=== PATIENT | male | born 1990 | race Caucasian/White ===

== ENCOUNTER 2024-06-28 14:46 | Emergency (ER) | payer BC, SELFPAY ==
[2024-06-28 14:50] VITALS: BP 196/110
[2024-06-28 15:25] LABS: % Basophils 0.2 % (0-2); % Eosinophils 0.4 % (0-6); % Immature Granulocytes 0.5 % (0-0.5); % Lymphocytes 14.5 % (20.5-51.1); % Neutrophils 77.4 % (42.2-75.2); Absolute Lymphocytes 1.2 10^3/uL (1.2-3.4); Absolute Monocytes 0.6 10^3/uL (0.1-0.6); Absolute Neutrophils 6.4 10^3/uL (1.4-6.5); Hematocrit 40.3 % (39.0-52.0); Hemoglobin 13.9 g/dL (13.0-18.0); Mean Corp Hgb Conc. 34.5 g/dL (33.0-37.0); Mean Corpuscular Hgb 31.7 pg (27.0-31.0); Mean Platelet Volume 8.8 fL (7.4-10.4); Nucleated Red Blood Cells % 0 % (-); Platelet Count 253 10^3/uL (130-400); Red Blood Cell Count 4.38 10^6/uL (4.70-6.10); Red Cell Dist. Width 12.4 % (11.5-14.5); White Blood Cell Count 8.3 10^3/uL (4.8-10.8)
[2024-06-28 15:40] LABS: ALT (SGPT) 24 U/L (0-50); AST (SGOT) 31 U/L (17-59); Albumin 5.1 g/dl (3.5-5.0); Alkaline Phosphatase 55 U/L (38-126); Blood Urea Nitrogen 21 mg/dl (9-20); Calcium 10.2 mg/dl (8.4-10.2); Carbon Dioxide 29 mmol/L (22-30); Chloride 99 mmol/L (98-107); Glucose 111 mg/dl (70-99); Potassium 4.3 mmol/L (3.5-5.1); Sodium 140 mmol/L (135-145); Total Bilirubin 0.9 mg/dl (0.2-1.3); Total Protein 7.7 g/dl (6.3-8.2); eGFR > 60.00
[2024-06-28 15:52] LABS: Troponin I < 0.012 ng/ml
[2024-06-28 16:48] VITALS: BP 178/110
[2024-06-28 16:49] VITALS: BMI 27.7
--- NOTE | 2024-06-28 17:03 | ED.GENMED ---
History of Present Illness
<Sera Fernandes PA-C - Last Filed: 06/28/24 18:58>
General
Chief Complaint: Chest Pain
Source: patient
Exam Limitations: none
Time Seen by Provider: 06/28/24 16:26
Nursing documentation reviewed up to this point in time: agreed with
History of Present Illness
History of Present Illness:
33-year-old male presenting to the emergency department following episode of chest pain. Patient reports left-sided chest discomfort while he was walking around his apartment initially starting at 1:30 PM. He describes it as a dull pressure in his
left chest without radiation. There was no exertional, pleuritic, or positional component to pain. Symptoms seem to persist for about 30 minutes prompting his visit to the emergency department. Symptoms resolved shortly after arriving to the
emergency department, while he was in the waiting room. At this time patient is asymptomatic
Patient denies any associated shortness of breath, dizziness/lightheadedness, numbness/tingling, back pain, etc.
Patient does have past history of smoking. No recent surgeries. No recent travel. No history of blood clots or family clotting disorders
Patient did have a history of hypertension which resolved once he stopped smoking and drinking. Although�he does state that he has been drinking alcohol again recently.
Review of Systems
<Sera Fernandes PA-C - Last Filed: 06/28/24 18:58>
Review of Systems
Allergies reviewed?: Yes
All Other Systems: ROS reviewed and negative except as documented in HPI and ROS
Phy Exam
<Sera Fernandes PA-C - Last Filed: 06/28/24 18:58>
Physical Exam
Physical Exam:
Vitals: Hypertensive, otherwise vital signs stable. Afebrile
General: Patient is well appearing, no acute distress
Skin: Warm and dry, no rashes or lesions
Head: Normocephalic, atraumatic
Eyes: Sclera nonicteric. EOMs intact. No nystagmus.
Throat: Protecting airway
Neck: Normal ROM, no cervical spine tenderness, no meningismus
Cardiac: Regular rate and rhythm, no murmurs. Anterior chest wall nontender to palpation.
Pulm: Normal respiratory effort, no wheezes, rales, rhonchi heard on exam.
Abdomen: No abdominal tenderness.
Extremities: No evidence of cyanosis or edema. Great distal pulses
Neuro: AAOx3. CN II-XII intact. No focal neurologic deficits.
Psychiatric: Normal affect.
Scores
<Sera Fernandes PA-C - Last Filed: 06/28/24 18:58>
Heart Score for Chest Pain Patients
STEMI patient?: No
History: Slightly or Non-Suspicious
ECG: Nonspecific Repolarization
Age: </= 45 years
Risk Factors: 1 or 2 Risk Factors
Troponin: </= Normal Limit
Heart Score for Chest Pain Patients: 2
Heart Score Risk: 2.5% MACE over next 6 weeks
<Jaya Bartholomew DO - Last Filed: 06/28/24 18:07>
Heart Score for Chest Pain Patients
Heart Score for Chest Pain Patients: 2
Heart Score Risk: 2.5% MACE over next 6 weeks
Course
<Sera Fernandes PA-C - Last Filed: 06/28/24 18:58>
Orders/Labs/Results
Orders:
Orders
06/28/24 14:48
Electrocardiogram (*1) Urgent
Reason for Study: Chest Pain
06/28/24 14:49
EKG- Treatment ONCE
06/28/24 14:52
CR Chest - 2 Views Urgent
Comment:
Reason For Exam: chest pain
06/28/24 15:16
Complete Blood Count/With Diff Urgent
Comprehensive Metabolic Panel Urgent
Troponin I Urgent
06/28/24 18:15
Electrocardiogram (*1) Urgent
Reason for Study: Chest Pain
EKG- Treatment ONCE
06/28/24 18:19
Troponin I Urgent
Abnormal Lab Results
06/28/24
15:16
RBC 4.38 L 10^6/uL
(4.70-6.10)
MCH 31.7 H pg
(27.0-31.0)
Neutrophils % 77.4 H %
(42.2-75.2)
Lymphocytes % 14.5 L %
(20.5-51.1)
BUN 21 H mg/dl
(9-20)
Glucose 111 H mg/dl
(70-99)
Albumin 5.1 H g/dl
(3.5-5.0)
06/28/24 15:16
06/28/24 15:16
Vital Signs
Blood pressure: 161/94
Initial and Last Documented VS:
Initial Vital Signs
Temp Pulse Resp BP Pulse Ox
98.1 F 95 20 196/110 98
06/28/24 14:50 06/28/24 14:50 06/28/24 14:50 06/28/24 14:50 06/28/24 14:50
Last Documented Vital Signs
Temp Pulse Resp BP Pulse Ox
98.1 F 89 14 161/94 99
06/28/24 14:50 06/28/24 16:48 06/28/24 16:48 06/28/24 17:03 06/28/24 16:48
Raisalt;Jaya Bartholomew, DO - Last Filed: 06/28/24 18:07>
Orders/Labs/Results
Orders:
Orders
06/28/24 14:48
Electrocardiogram (*1) Urgent
Reason for Study: Chest Pain
06/28/24 14:49
EKG- Treatment ONCE
06/28/24 14:52
CR Chest - 2 Views Urgent
Comment:
Reason For Exam: chest pain
06/28/24 15:16
Complete Blood Count/With Diff Urgent
Comprehensive Metabolic Panel Urgent
Troponin I Urgent
06/28/24 18:15
Electrocardiogram (*1) Urgent
Reason for Study: Chest Pain
EKG- Treatment ONCE
06/28/24 18:19
Troponin I Urgent
Abnormal Lab Results
06/28/24
15:16
RBC 4.38 L 10^6/uL
(4.70-6.10)
MCH 31.7 H pg
(27.0-31.0)
Neutrophils % 77.4 H %
(42.2-75.2)
Lymphocytes % 14.5 L %
(20.5-51.1)
BUN 21 H mg/dl
(9-20)
Glucose 111 H mg/dl
(70-99)
Albumin 5.1 H g/dl
(3.5-5.0)
06/28/24 15:16
06/28/24 15:16
Vital Signs
Initial and Last Documented VS:
Initial Vital Signs
Temp Pulse Resp BP Pulse Ox
98.1 F 95 20 196/110 98
06/28/24 14:50 06/28/24 14:50 06/28/24 14:50 06/28/24 14:50 06/28/24 14:50
Last Documented Vital Signs
Temp Pulse Resp BP Pulse Ox
98.1 F 89 14 161/94 99
06/28/24 14:50 06/28/24 16:48 06/28/24 16:48 06/28/24 17:03 06/28/24 16:48
<Sera Fernandes PA-C - Last Filed: 06/28/24 18:58>
MDM/Problems Addressed
Differential Diagnosis Includes:
Not limited to: Muscle strain, costochondritis, pericarditis, myocarditis, pneumothorax, doubt ACS
MDM/Problems Addressed:
33-year-old male presenting to the emergency department with episode of chest pain that is since resolved. There was no associated shortness of breath, back pain. There is no exertional, cardiac, or positional nature to pain. Patient is
hypertensive on arrival, otherwise vital signs are stable. Physical exam as above. Patient is completely asymptomatic, very well-appearing. Heart regular rate and rhythm. Lungs clear bilaterally. No clinical evidence of DVT on exam. Patient is
perfusing well with palpable equal distal pulses. Labs initiated in triage without any clinically significant abnormalities. Initial troponin undetectable. Chest x-ray without any signs of acute disease. Symptoms seem most consistent with a
noncardiac etiology chest pain, low suspicion for acute cardiac emergency. Given patient is asymptomatic at this time�with no reported shortness of breath, low suspicion for pulmonary embolism. Will trend troponin and reassess. Anticipate
discharge with primary follow-up.
Chronic conditions affecting care:
Hypertension
Acute Exacerbation and/or Progression of Chronic Illness:
Acutely hypertensive
<Sera Fernandes PA-C - Last Filed: 06/28/24 18:58>
*Radiology
Radiology exam reviewed: preliminary read by ED provider and radiology read reviewed
*Pulse Oximetry
Patient hypoxic: no
*EKG
Interpreted by ED Provider?: Yes
EKG Intrepretation Date: 06/28/24
Interpretation: normal
Comparison EKG: no comparison EKG present
Heart Rate: 89
Rate: normal
Rhythm: sinus
[place]: normal axis
Ischemia: non-specific ST changes
*Hydrographer Interpretation
Rate: normal
Interpretation: normal
Heart Rate: 86
Rhythm: sinus
*Critical Care Note
Total Time (30-74mins, 75-104mins- exclusive of procedures): Not Applicable
<Sera Fernandes PA-C - Last Filed: 06/28/24 18:58>
Update Note
Update Note:
Update 6:57 PM: Repeat troponin undetectable. Patient remains asymptomatic with troponins negative x 2. Very low suspicion for acute cardiac process. Will discharge with primary care follow-up and return precautions. Patient comfortable with
plan�will follow-up with primary care for high blood pressure management. Patient seen with attending physician.
ED Attending Note
<Sera Fernandes PA-C - Last Filed: 06/28/24 18:58>
-
Portions of this chart may have been created with voice recognition software.� Occasional wrong word or��sound alike� substitutions may have occurred due to the inherent limitations of voice recognition software.
<Jaya Bartholomew DO - Last Filed: 06/28/24 18:07>
ED Attending Note
Patient seen and examined by attending physician: Yes
I performed the substantive portion of visit, reviewed & personally made and approve the management plan that is documented in note by myself or VASHTI.: Yes
ED Attending Note:
I have seen and evaluated the patient with a [id number] encounter. I have spoken to the advance practicer provider and involved in the medical history, the physical exam, medical decision making.
Evaluation and management service: agree unless noted differently below.
Results interpretation: agree unless noted differently below.
Focused HPI: 33-year-old male presenting with resolved chest pain. This occurred while he was standing. It lasted for about an hour or so. Not related to food, position or exertion. On arrival, symptoms resolved
Physical exam: Sitting in bed comfortably. Heart regular in rhythm. Abdomen soft and nontender
Medical Decision Making: EKG, chest x-ray troponin negative. Will obtain second troponin but discussed likely not cardiac related chest pain. Patient comfortable with PCP follow-up
Discharge Plan
Departure
Discharge Problem:
Chest pain
Instructions: Chest pain, BLOOD PRESSURE
Prescriptions:
No Action
No Current Medications
0
Referrals:
NONE,* [Family Provider] -
Activity Restrictions/Additional Instructions:
RETURN TO THE EMERGENCY DEPARTMENT WITH ANY FEVERS, CHEST PAIN, SHORTNESS OF BREATH, LIGHTHEADEDNESS/DIZZINESS, SEVERE BACK PAIN, WORSENING IN CURRENT SYMPTOMS, OR ANY OTHER CONCERNS
-As discussed - you should follow-up with primary care for further evaluation/management and management of high blood pressure.
Monitor your symptoms closely and return to the emergency department with any acute worsening/new symptoms
Interventions
Interventions:
*Risk Screen - Suicide Last Done: 06/28/24 16:28
*General Assessment Last Done: 06/28/24 14:50
*Neglect/Abuse Screening Last Done: 06/28/24 16:28
ED- Fall Risk Assessment Last Done: 06/28/24 16:28
*ED COVID-19 Vaccine History Last Done: 06/28/24 16:28
ED- Cardiac Assessment Last Done: 06/28/24 16:49
Discharge Date and Time
Print Language: LITHUANIAN
[2024-06-28 18:56] LABS: Troponin I < 0.012 ng/ml
== END 2024-06-28 19:04 | disposition home or self-care (01) ==
LOC: EMR 14:46
PROVIDERS: Emergency Medicine; Physician Assistant; EMERGENCY PHYSICIAN Student in an Organized Health Care Education/Training Program
DX: R07.89 Other chest pain (principal); I10 Essential (primary) hypertension; Z87.891 Personal history of nicotine dependence
CPT/HCPCS: 99285; 71046; 80053; 84484; 85025; 93005